=== PATIENT | female | born 1985 | race Caucasian/White ===

== ENCOUNTER → 2023-12-18 11:34 | Outpatient (CLI) | payer OTHER, SELFPAY ==
--- NOTE | 2023-12-18 | DI.US.S_ITS ---
PROCEDURE: US PELVIC COMPLETE INDICATIONS: IRREGULAR MENSTRUATION TECHNIQUE: Real-time scanning was performed of the pelvic organs, with image documentation. Additional endovaginal scanning was necessary due to incomplete visualization of the adnexal and endometrial structures by transabdominal scanning. COMPARISON: None. FINDINGS: Uterus: Uterus is retroverted and normal in size at 7.7 x 4.8 x 4.4 cm. The myometrium is homogeneous. There is a 1.3 x 1.2 x 1.5 cm intramural fibroid in the anterior uterine wall at midline. The endometrium measures 3 mm combined thickness. Ovaries: The right ovary measures 2.6 x 1.3 x 1.6 cm, with a calculated ovarian volume of 2.8 cc. The left ovary measures 2.7 x 1.7 x 1.4 cm, with a calculated ovarian volume of 3.0 cc. The ovaries have a normal sonographic appearance. Less than 12 follicles can be seen in each ovary. No adnexal masses are seen. Other: No pathologic free abdominal or pelvic fluid. IMPRESSION: 1. A small intramural fibroid in the anterior uterine wall at midline. 2. Normal ovaries. We strive to produce accurate, complete, and clear reports of imaging services. To assist us in improving patient care, this report was composed using standard report templates and voice recognition software. Therefore, it may contain abnormal punctuation, insertions and/or omissions. Occasional wrong-word or sound-alike substitutions may occur. Though we review the report and make efforts to correct it, we do recommend that the report be read carefully in proper context to recognize any text inaccuracies. Dictated by: Renee Moon M.D. on 12/18/2023 at 14:33 Approved by: Renee Moon M.D. on 12/18/2023 at 14:37
== END ==
PROVIDERS: PCP Nurse Practitioner Family; Referring Provider Nurse Practitioner Family; Visit Provider Nurse Practitioner Family
DX: N92.6 Irregular menstruation, unspecified (principal); D25.1 Intramural leiomyoma of uterus
CPT/HCPCS: 76856

== ENCOUNTER → 2023-12-26 15:37 | Outpatient (CLI) | payer OTHER, SELFPAY ==
--- NOTE | 2023-12-26 17:30 | DI.MRI.S_ITS ---
PROCEDURE: MR CERVICAL SPINE WO CON INDICATIONS: Spinal stenosis, cervical region TECHNIQUE: Noncontrast sagittal T1 spin echo and T2 fast spin echo, sagittal STIR, foraminal oblique sagittal T2 fast spin echo, and axial gradient echo or T2 fast spin echo through the cervical spine. COMPARISON: [facility] Outside Film, CT, CT CERVICAL SPINE WITHOUT CONTRAST, 11/04/2021, 11:05. [facility] Outside Film, MR, MR CERVICAL SPINE WITHOUT CONTRAST, 12/13/2021, 19:16. FINDINGS: Image quality: Excellent. Alignment and Curvature: There is normal bony alignment. Bone Marrow: Marrow demonstrates normal overall signal. Spinal Cord: Visualized spinal cord has normal size and signal. No cerebellar tonsillar herniation. Paraspinous Soft Tissues: No paravertebral masses. Prevertebral soft tissues are normal in thickness. C2-C3: Normal appearance. C3-C4: Normal appearance. C4-C5: Unchanged mild central posterior disc protrusion without canal stenosis. AP diameter of the central canal is 10.5 mm. No foraminal narrowing. C5-C6: Unchanged [id number] diffuse disc bulge. Mild canal stenosis. AP diameter of the central canal is 9.8 mm. Prominent bilateral uncovertebral joint hypertrophy. Moderate to severe right foraminal narrowing with a degree of right foraminal C6 nerve root impingement. Question interval progression of right foraminal narrowing. Mild to moderate left foraminal narrowing. C6-C7: Normal appearance. C7-T1: Normal appearance. IMPRESSION: 1. Findings are most significant at C5-C6. There is mild canal stenosis and moderate to severe right foraminal narrowing with a degree of right foraminal C6 nerve root impingement. Question interval progression of right foraminal narrowing. 2. Unchanged mild central posterior disc protrusion without canal stenosis at C4-C5. 3. Otherwise unremarkable study. No canal stenosis or foraminal stenosis at other levels. Dictated by: Manuel Lovelace M.D. on 12/26/2023 at 18:06 Approved by: Manuel Lovelace M.D. on 12/26/2023 at 18:16
== END ==
PROVIDERS: PCP Nurse Practitioner Family; Referring Provider Physical Medicine & Rehabilitation Pain Medicine; Visit Provider Physical Medicine & Rehabilitation Pain Medicine
DX: M48.02 Spinal stenosis, cervical region (principal); M50.221 Other cervical disc displacement at C4-C5 level
CPT/HCPCS: 72141